=== PATIENT | female | born 1960 | race Caucasian/White ===

== ENCOUNTER 2021-11-01 07:46 | Outpatient (CLI) | payer BC, SELFPAY ==
--- NOTE | ~2021-11-01 | MM_ITS ---
EXAMINATION: MM screening james BI w liliya HISTORY: Screening mammogram TECHNIQUE: Craniocaudal and mediolateral oblique 3-D tomosynthesis images were obtained and synthetic 2-D images were generated. CAD analysis was submitted and interpreted. COMPARISON: 05/01/2019, 04/21/2018 bilateral screening mammogram examinations BREAST PARENCHYMAL COMPOSITION: FINDINGS: Stable benign circumscribed lymph node in the upper outer left breast. There is no evidence of suspicious mass, calcification, or architectural distortion to suggest malignancy in either breas t. There has been no suspicious interval change. IMPRESSION: 1. No mammographic evidence of malignancy. 2. Recommend routine screening mammography in one year. BI-RADS Category 2: Benign finding(s). Reviewed, dictated and finalized at location A.
== END 2021-11-01 07:47 | disposition home or self-care (01) ==
LOC: ANHIMG 07:47
PROVIDERS: PCP Family Medicine Adolescent Medicine; Visit Provider Obstetrics & Gynecology
DX: Z12.31 Encounter for screening mammogram for malignant neoplasm of breast (principal)
CPT/HCPCS: 77063; 77067